=== PATIENT | female | born 1940 | race Caucasian/White ===

== ENCOUNTER → 2017-02-11 | Outpatient (CLI) | payer OTHER ==
--- NOTE | 2017-02-11 12:49 | MAMMOGRAPHY REPORT ---
BILATERAL DIGITAL SCREENING MAMMOGRAM WITH CAD: 02/11/2017 CLINICAL HISTORY: Routine screening. Patient has no complaints. TECHNIQUE: Bilateral CC and MLO views were obtained. Current study was also evaluated with a Comput er Aided Detection (CAD) system. COMPARISON: Comparison is made to exams dated: 12/05/2015 mammogram - [facility], mammogram, and 10/04/2013 mammogram. BREAST COMPOSITION: The tissue of both breasts is heterogeneously dense, which may obscure small ma sses. FINDINGS: Linear scar markers overlie the medial aspect of each breast. There are scattered benign coarse calcifications, round and punctate benign-appearing microcalcifications. Nodular asymmetry in the lateral posterior right breast on the CC view appears very similar to prior mammograms dating back to at least 10/04/2013, therefore likely benign. No new suspicious mass, architectural distor tion or cluster of suspicious microcalcifications is seen. IMPRESSION: ACR BI-RADS CATEGORY 1: NEGATIVE There is no mammographic evidence of malignancy. A 1 year screening mammogram is recommended. The p atient will receive written notification of the results. Approximately 10% of breast cancers are not detected with mammography. A negative mammographic repor t should not delay biopsy if a clinically suggestive mass is present. Noreen Vences M.D. ay/:02/11/2017 08:37:24 [facility]: Jennifer STRONG)([place]), [facility] letter sent: Normal 1/2 BI-RADS Code: ACR BI-RADS Category 1: Negative
== END | disposition home or self-care (01) ==
LOC: C.MAMM 07:46
PROVIDERS: ATTEND Family Medicine
DX: Z12.31 Encounter for screening mammogram for malignant neoplasm of breast (principal)

== ENCOUNTER → 2018-02-18 | Outpatient (CLI) | payer OTHER ==
--- NOTE | 2018-02-18 15:47 | DIAGNOSTIC IMAGING REPORT ---
L VENOUS DOPP LOWER EXT UNILAT HISTORY: 78 years-old Female LEFT LEG PAIN/SWELLING acute left leg pain and swelling COMPARISON: None available TECHNIQUE: Multiple real-time sonographic images of the left lower extremity deep venous structures were obtained assessing grayscale appearance, color and spectral flow FINDINGS: There is normal compressibility, flow, phasicity and augmentation of the left lower extremity deep venous structures. Left-sided popliteal cyst measures up to 1.8 cm. There is a linear parallel orientation hypoechoic collection about the superior aspect of the posterior calf measuring up to 2.8 x 5.3 x 0.5 cm which appears to layer along the myofascial margin of the adjacent gastrocnemius. IMPRESSION: 1. No sonographic evidence of deep venous thrombosis. 2. Small Escamilla's cyst. 3. Hypoechoic collection about the posterior calf measuring up to 5.3 cm appears to layer along the myofascial margin of the adjacent gastrocnemius. Correlate clinically to exclude muscle strain and/or hematoma. The above report was generated using voice recognition software. It may contain grammatical, syntax or spelling errors. Electronically signed by: Angel Bell M.D. 02/18/2018 3:46 PM Dictated Date/Time: 02/18/2018 3:44 PM
== END | disposition home or self-care (01) ==
LOC: C.ULTR 15:04
PROVIDERS: ATTEND Family Medicine
DX: M79.662 Pain in left lower leg (principal)